=== PATIENT | male | born 1990 | race Caucasian/White ===

== ENCOUNTER 2017-04-30 23:34 | Emergency (ER) | payer OTHER ==
[2017-04-30] MEDS ORDERED: Adacel (T-DAP) 0.5 ML VIAL ONE (23:58)
== END 2017-05-01 00:25 | disposition home or self-care (01) ==
LOC: NAV ERS 23:34
DX: S61.011A Laceration without foreign body of right thumb without damage to nail, initial encounter (principal); E20.9 Hypoparathyroidism, unspecified; W23.0XXA Caught, crushed, jammed, or pinched between moving objects, initial encounter
CPT/HCPCS: 90471; 90715

== ENCOUNTER 2018-01-18 00:47 | Emergency (ER) | payer OTHER ==
[2018-01-18] MEDS ORDERED: predniSONE 20 MG TAB ONE (01:13)
[2018-01-18] MEDS ORDERED: Famotidine 20 MG TAB ONE (01:15)
== END 2018-01-18 02:20 | disposition home or self-care (01) ==
LOC: NAV ERS 00:47
DX: L50.0 Allergic urticaria (principal); E20.9 Hypoparathyroidism, unspecified
CPT/HCPCS: 99283; J7506

== ENCOUNTER 2018-10-21 21:01 | Emergency (ER) | payer OTHER ==
--- NOTE | 2018-10-21 21:32 | RAD ---
RIGHT HAND THREE VIEWS: 10/21/18 HISTORY: Injury, right hand pain. FINDINGS/IMPRESSION: No acute fracture or dislocation is identified. POS: [facility]
== END 2018-10-21 21:38 | disposition home or self-care (01) ==
LOC: NAV ERS 21:01
DX: S60.221A Contusion of right hand, initial encounter (principal); E20.9 Hypoparathyroidism, unspecified; Z79.899 Other long term (current) drug therapy; W22.01XA Walked into wall, initial encounter

== ENCOUNTER 2019-01-20 21:49 | Emergency (ER) | payer OTHER ==
[2019-01-20] MEDS ORDERED: Ibuprofen 200 MG TAB ONE (22:10)
--- NOTE | 2019-01-20 22:41 | RAD ---
RADIOGRAPH RIGHT ELBOW 4VIEWS: DATE: 01/20/2019 HISTORY: 28-year-old male with pain due to post acute blunt trauma to the elbow. FINDINGS: There is no evidence of fracture or dislocation. There is no evidence of periostitis, permeative lesi on, osteolytic lesion, or osteoblastic lesion. The joint spaces are maintained without erosions or significant osteophytes. No joint effusion is identified. IMPRESSION: Normal
[2019-01-20] MEDS ORDERED: Adacel (T-DAP) 0.5 ML SYRINGE ONE (22:42)
== END 2019-01-20 23:04 | disposition home or self-care (01) ==
LOC: NAV ERS 21:49
DX: S50.01XA Contusion of right elbow, initial encounter (principal); X58.XXXA Exposure to other specified factors, initial encounter
CPT/HCPCS: 90471; 90715

== ENCOUNTER 2020-10-18 01:43 | Emergency (ER) | payer BC, OTHER | END 2020-10-18 03:38 | disposition home or self-care (01) | LOC: NAV ERS 01:43 | DX: J02.9 Acute pharyngitis, unspecified (principal); E20.9 Hypoparathyroidism, unspecified | CPT/HCPCS: 87081; 87430; 99283 ==

== ENCOUNTER 2020-11-03 07:26 | Emergency (ER) | payer BC | END 2020-11-03 07:59 | disposition home or self-care (01) | LOC: NAV ERS 07:26 | DX: R06.4 Hyperventilation (principal); E20.9 Hypoparathyroidism, unspecified | CPT/HCPCS: 99284 ==

== ENCOUNTER 2021-02-18 17:48 | Emergency (ER) | payer BC ==
[2021-02-18] MEDS ORDERED: predniSONE 20 MG TAB ONE (18:19)
== END 2021-02-18 18:26 | disposition home or self-care (01) ==
LOC: NAV ERS 17:48
DX: L50.9 Urticaria, unspecified (principal)
CPT/HCPCS: 99282; J7512

== ENCOUNTER 2021-02-19 20:35 | Emergency (ER) | payer BC | END 2021-02-19 21:51 | disposition home or self-care (01) | LOC: NAV ERS 20:35 | DX: L50.9 Urticaria, unspecified (principal); E20.9 Hypoparathyroidism, unspecified; Z79.52 Long term (current) use of systemic steroids | CPT/HCPCS: 99282 ==

== ENCOUNTER 2022-04-18 17:53 | Emergency (ER) | payer BC ==
[2022-04-18] MEDS ORDERED: Acetaminophen 500 MG TAB ONE (18:31)
[2022-04-18] MEDS ORDERED: Penicillin V Potassium 250 MG TAB ONE (20:19)
== END 2022-04-18 20:20 | disposition home or self-care (01) ==
LOC: NAV ERS 17:53
DX: J02.0 Streptococcal pharyngitis (principal); E20.9 Hypoparathyroidism, unspecified; Z20.822 Contact with and (suspected) exposure to COVID-19
CPT/HCPCS: 87430; 87804; 99283; U0003; U0005

== ENCOUNTER 2024-01-01 01:04 | Emergency (ER) | payer BC ==
[2024-01-01] MEDS ORDERED: Ibuprofen 800 MG TAB ONE (01:25)
== END 2024-01-01 01:36 | disposition home or self-care (01) ==
LOC: NAV ERS 01:04
DX: S60.221A Contusion of right hand, initial encounter (principal); W23.0XXA Caught, crushed, jammed, or pinched between moving objects, initial encounter
CPT/HCPCS: 99283